=== PATIENT | female | born 1980 | race Caucasian/White ===

== ENCOUNTER → 2020-11-27 | Outpatient (CLI) | payer OTHER, SELFPAY | LOC: M LABSMTC 09:50 | PROVIDERS: ATTEND Pediatrics | DX: Z20.828 Contact with and (suspected) exposure to other viral communicable diseases (principal) ==

== ENCOUNTER 2021-02-28 05:12 | Emergency (ER) | payer OTHER ==
[~2021-02-28] VITALS: Ht 147.3 cm; Wt 89.8 kg
[2021-02-28 08:42] VITALS: BP 138/88
--- NOTE | 2021-02-28 08:47 | REP ---
INDICATION: combative pt vs her, pain with palpation. COMPARISON: None. TECHNIQUE: There are three views of the thoracic spine. FINDINGS: Vertebral body heights, interspacing and alignment are normal. Mineralization is normal. The pedicles are unremarkable. There is mild scoliosis convex right in the upper thoracic spine and left in the lower thoracic spine. There are no congenital vertebral anomalies. IMPRESSION: Mild scoliosis, otherwise negative thoracic spine. No vertebral compression deformities. No listhesis. <Electronically signed by Mehdi Cantrell > 02/28/21 [id number]
--- NOTE | 2021-02-28 08:50 | REP ---
INDICATION: combative pt vs her, pain with palpation. COMPARISON: None. TECHNIQUE: There are five views. FINDINGS: Vertebral body heights, interspacing and alignment are normal. There are no compression deformities. There is no listhesis. Mineralization is normal. The pedicles are unremarkable. I suspect there are bilateral L5 pars interarticularis defects. IMPRESSION: Bilateral L5 spondylolysis without spondylolisthesis. Otherwise, essentially negative lumbar spine. <Electronically signed by Mehdi Cantrell > 02/28/21 [id number]
== END 2021-02-28 09:04 | disposition home or self-care (01) ==
LOC: M ED 05:12
DX: M43.07 Spondylolysis, lumbosacral region (principal); J45.909 Unspecified asthma, uncomplicated; F41.9 Anxiety disorder, unspecified; F32.9 Major depressive disorder, single episode, unspecified; F43.21 Adjustment disorder with depressed mood

== ENCOUNTER 2021-07-10 08:48 | Emergency (ER) | payer OTHER ==
[~2021-07-10] VITALS: Ht 147.3 cm; Wt 88.6 kg
[2021-07-10] MEDS ORDERED: POLY2.5S OS (09:29)
[2021-07-10 09:36] VITALS: BP 132/90
== END 2021-07-10 09:45 | disposition home or self-care (01) ==
LOC: M ED 08:48
DX: Z77.21 Contact with and (suspected) exposure to potentially hazardous body fluids (principal); X58.XXXA Exposure to other specified factors, initial encounter; Y92.238 Other place in hospital as the place of occurrence of the external cause; Y93.9 Activity, unspecified; Y99.0 Civilian activity done for income or pay; J45.909 Unspecified asthma, uncomplicated; F41.9 Anxiety disorder, unspecified; F32.9 Major depressive disorder, single episode, unspecified; F43.10 Post-traumatic stress disorder, unspecified

== ENCOUNTER → 2021-12-17 | Outpatient (REF) ==
[~2021-12-17] MED LIST: POLY2.5S OS
== END ==
LOC: M LABSMTC 14:55
PROVIDERS: ATTEND Pediatrics
DX: Z11.52 Encounter for screening for COVID-19 (principal)

== ENCOUNTER → 2022-04-05 | Outpatient (REF) | LOC: M LABSMTC 11:42 | PROVIDERS: ATTEND Family Medicine | DX: Z20.828 Contact with and (suspected) exposure to other viral communicable diseases (principal) ==